=== PATIENT | female | born 1945 | race Caucasian/White ===

== ENCOUNTER 2021-01-25 08:07 | Outpatient (CLI) | payer MEDICARE, BC ==
[2021-01-25 09:36] LABS: Bilirubin Neg (Negative); Blood, Urine 10 (Negative); Clarity Cloudy (Clear); Glucose, Urine (Dipstick) Normal (Negative); Ketone, Urine Negative (Negative); Leukocyte 500 (Negative); Nitrite Negative (Negative); Protein, Urine (Dipstick) Negative (Neg-Trace); Urobilinogen Normal mg/dL (Less than 2)
[2021-01-25 09:44] LABS: Hemoglobin 15.3 g/dL (12.0-15.5); Mean Corpuscular HGB CONC 31.2 g/dL (32.0-36.0); Mean Corpuscular Hemoglobin 27.4 pg (27.0-33.0); Mean Corpuscular Volume 87.7 fl (81.6-98.3); Mean Platelet Volume 10.9 fl (7.4-10.4); Platelet Count 195 10x3/uL (150-450); RBC Distribution Width 13.2 % (11.5-14.5); Red Blood Cell (RBC) Count 5.59 10x6/uL (3.90-5.03); White Blood Cell (WBC) Count 5.3 10x3/uL (3.5-10.5)
[2021-01-25 09:48] LABS: Anion Gap 12 mmol/L (10-20); BUN (Urea Nitrogen) 17 mg/dL (9.8-20.1); Calc. Creatinine Clearance 0 mL/min (70-130); Calcium 9.3 mg/dL (7.8-10.44); Carbon Dioxide 29 mmol/L (23-31); Chloride 104 mmol/L (98-107); Glucose 89 mg/dL (83-110); Potassium 4.3 mmol/L (3.5-5.1); Sodium 141 mmol/L (136-145)
[2021-01-25 09:54] LABS: Bacteria/HPF 1+ HPF (None Seen)
[2021-01-25 10:01] LABS: INR-International Normal Ratio 0.9; PTT 26.3 sec (22.0-33.0); Prothrombin Time 10.3 sec (9.5-12.1)
[2021-01-25 14:56] LABS: SARS-CoV-2 PCR by NAA Not Detected (NotDetected)
== END 2021-01-25 08:08 | disposition home or self-care (01) ==
LOC: LABBT 08:07
PROVIDERS: ATTEND Family Medicine
DX: Z01.818 Encounter for other preprocedural examination (principal); Z20.822 Contact with and (suspected) exposure to COVID-19; N20.0 Calculus of kidney; N95.2 Postmenopausal atrophic vaginitis; N81.6 Rectocele; N81.10 Cystocele, unspecified; R35.0 Frequency of micturition; N28.1 Cyst of kidney, acquired
CPT/HCPCS: 80048; 81001; 85027; 85610; 85730; 87086; 87635; 93005; 93010; U0003; U0005

== ENCOUNTER 2021-01-27 06:09 | Day surgery (SDC) | payer MEDICARE, BC ==
[2021-01-26 12:21] VITALS: BMI 26.6
[2021-01-27] MEDS ORDERED: SUGAMMADEX SODIUM 200 MG/2 ML VIAL ONE (06:38)
[2021-01-27] MEDS ORDERED: Fentanyl 100 MCG/2 ML VIAL ONE (06:38)
[2021-01-27] MEDS ORDERED: Levofloxacin 500 mg/D5W 100 ml Premix Bag ONE (06:52)
[2021-01-27] MEDS ORDERED: Iothalamate Meglumine 60% 50 ML VIAL FS ONE (07:00)
[2021-01-27] MEDS ORDERED: Lidocaine 1% PF 5 ML VIAL ONE (07:53)
[2021-01-27] MEDS ORDERED: Ketorolac Tromethamine 30 MG/ML VIAL ONE (07:53)
[2021-01-27] MEDS ORDERED: Dexamethasone 20 MG/5 ML VIAL ONE (07:53)
[2021-01-27] MEDS ORDERED: Rocuronium Bromide 10 MG/ML (10ML VIAL) ONE (07:53)
[2021-01-27] MEDS ORDERED: Glycopyrrolate 0.2 MG/ML 5 ML SYRINGE ONE (07:53)
[2021-01-27] MEDS ORDERED: PROPOFOL 200 MG/20 ML VIAL ONE (07:53)
[2021-01-27] MEDS ORDERED: PHENYLEPHRINE-NS 100 MCG/ML 10 ML SYRINGE ONE (07:53)
[2021-01-27] MEDS ORDERED: Oxybutynin 5 MG TAB ONE (08:50)
[2021-01-27] MEDS ORDERED: Phenazopyridine HCl 100 MG TAB ONE (08:50)
[2021-02-02 20:08] LABS: CA Oxalate Dihydrate 10 % (.); CA Oxalate Monohydrate 90 % (.); Color Brown (.); Stone Weight 2 mg (.)
== END 2021-01-27 14:45 | disposition home or self-care (01) ==
LOC: SDC 06:09
PROVIDERS: ATTEND Urology
PROC: 0TC38ZZ Extirpation of Matter from Right Kidney Pelvis, Via Natural or Artificial Opening Endoscopic (ICD-10-PCS; principal; 2021-01-27)
PROC: 0T768DZ Dilation of Right Ureter with Intraluminal Device, Via Natural or Artificial Opening Endoscopic (ICD-10-PCS; 2021-01-27)
DX: N20.0 Calculus of kidney (principal); N95.2 Postmenopausal atrophic vaginitis; N81.10 Cystocele, unspecified; N81.6 Rectocele; N28.1 Cyst of kidney, acquired; I10 Essential (primary) hypertension; E78.00 Pure hypercholesterolemia, unspecified; Z79.899 Other long term (current) drug therapy; Z88.1 Allergy status to other antibiotic agents
CPT/HCPCS: 74018; 74420; 82365; 88300; J1100; J1885; J1956; J2704; J3010; Q9961